=== PATIENT | female | born 1950 | race Caucasian/White ===

== ENCOUNTER 2021-01-04 07:45 | Day surgery (SDC) | payer MEDICARE, SELFPAY ==
[2020-12-29 09:19] VITALS: BMI 23.9
--- NOTE | 2020-12-31 08:12 | MHC.SHP ---
Pre-Procedural Eval Section A Date of Service: 12/31/20 The patient is an INPATIENT: No Changes since office visit: No Cold of Flu in the past 2 weeks, No New Medical Problems, No Changes in Medication and No Patient answered all questions The History & Physical has been completed within 30 days and I have reviewed it.: Yes Section B Chief Complaint: Cataract Left Eye Allergies: Allergies Allergy/AdvReac Type Severity Reaction Status Date / Time alendronate sodium Allergy Intermediate muscle Verified 12/29/20 09:14 [From Fosamax] stiffness Plan Diagnosis/Plan: Unchanged I have reviewed the history and physical and performed a pertinent physical examination on my patient. No changes have occurred unless specified.
--- NOTE | 2021-01-01 09:12 | HO.ANESPROP2 ---
Documented by User: Jihan Dickinson NP 01/01/21 09:13 HPI - Anesthesia Eval Consult details Narrative: 70yo F for Left Cataract Extraction IOL Insertion PCP cleared No prev cataract on record [facility] Past Medical History Medical History COVID-19 vaccine series completed Depression Elevated cholesterol Macular degeneration Surgical History Surgical History H/O colonoscopy History of bunionectomy Hx of section Social History Social History Are you a primary career and technology education teacher to a significant other at home: No Do you presently have visiting nurse or other home services: No Patient Tobacco Use Status: Former Tobacco user Quit Date: age 27 Tobacco use type: Cigarette Years Smoked: age 27 Use of substances other than those prescribed or required for medical reasons: No Have you been hit, kicked, punched, or otherwise hurt by someone within the past year? If so, by whom?: No Are you DNR?: No Advance Directives: No Advance Directives Information Provided: Yes Advance Directives on File: No Recently lost weight without trying: No Eating poorly because of decreased appetite: No Nutrition Risks: No Nutritional Risk Poor oral hygiene: No Meds Allergies Allergy/AdvReac Type Severity Reaction Status Date / Time alendronate sodium Allergy Intermediate muscle Verified 01/04/21 08:44 [From Fosamax] stiffness Home Medications Medication Instructions Recorded Confirmed Last Taken Type acyclovir 400 mg tablet 1 tab PO BID 12/29/20 12/29/20 Unknown History aspirin 81 mg tablet,delayed 81 mg PO DAILY 12/29/20 12/29/20 Unknown History release (Aspirin Low Dose) calcium carbonate-vitamin D3 600 1 cap PO DAILY 12/29/20 12/29/20 Unknown History mg calcium-200 unit capsule (Calcium 600 + D(3)) cyanocobalamin (vitamin B-12) 500 500 mcg PO DAILY 12/29/20 12/29/20 Unknown History mcg tablet (Vitamin B-12) folic acid 800 mcg tablet 0.8 mg PO DAILY 12/29/20 12/29/20 Unknown History pyridoxine (vitamin B6) 100 mg 100 mg PO DAILY 12/29/20 12/29/20 Unknown History tablet (Vitamin B-6) simvastatin 20 mg tablet 1 tab PO QAM 12/29/20 12/29/20 Unknown History venlafaxine 37.5 mg 1 cap PO DAILY 12/29/20 12/29/20 01/04/21 07:00 History capsule,extended release 24 hr vitamins A,C,W-clkl-aowsve 14,320 1 cap PO BID 12/29/20 12/29/20 Unknown History unit-226 mg-200 unit capsule (PreserVision AREDS) Exam Exam Date and Time: January 01, 2021 0912 Height,Weight and Vital Signs: Height 5 ft 5.5 in Weight 66.224 kg Assessment and Plan Assessment Anesthesia Assessment: Chart Reviewed Documented by User: Suzan Gomez MD 01/04/21 09:09 [facility] Past Medical History Medical History COVID-19 vaccine series completed Depression Elevated cholesterol Macular degeneration Surgical History Surgical History H/O colonoscopy History of bunionectomy Hx of section History of Problems with Anesthesia: No Social History Social History Are you a primary career and technology education teacher to a significant other at home: No Do you presently have visiting nurse or other home services: No Patient Tobacco Use Status: Former Tobacco user Quit Date: age 27 Tobacco use type: Cigarette Years Smoked: age 27 Use of substances other than those prescribed or required for medical reasons: No Have you been hit, kicked, punched, or otherwise hurt by someone within the past year? If so, by whom?: No Are you DNR?: No Advance Directives: No Advance Directives Information Provided: Yes Advance Directives on File: No Recently lost weight without trying: No Eating poorly because of decreased appetite: No Nutrition Risks: No Nutritional Risk Poor oral hygiene: No Meds Allergies Allergy/AdvReac Type Severity Reaction Status Date / Time alendronate sodium Allergy Intermediate muscle Verified 01/04/21 08:44 [From Fosamax] stiffness Home Medications Medication Instructions Recorded Confirmed Last Taken Type acyclovir 400 mg tablet 1 tab PO BID 12/29/20 12/29/20 Unknown History aspirin 81 mg tablet,delayed 81 mg PO DAILY 12/29/20 12/29/20 Unknown History release (Aspirin Low Dose) calcium carbonate-vitamin D3 600 1 cap PO DAILY 12/29/20 12/29/20 Unknown History mg calcium-200 unit capsule (Calcium 600 + D(3)) cyanocobalamin (vitamin B-12) 500 500 mcg PO DAILY 12/29/20 12/29/20 Unknown History mcg tablet (Vitamin B-12) folic acid 800 mcg tablet 0.8 mg PO DAILY 12/29/20 12/29/20 Unknown History pyridoxine (vitamin B6) 100 mg 100 mg PO DAILY 12/29/20 12/29/20 Unknown History tablet (Vitamin B-6) simvastatin 20 mg tablet 1 tab PO QAM 12/29/20 12/29/20 Unknown History venlafaxine 37.5 mg 1 cap PO DAILY 12/29/20 12/29/20 01/04/21 07:00 History capsule,extended release 24 hr vitamins A,C,T-jmjl-xaplgh 14,320 1 cap PO BID 12/29/20 12/29/20 Unknown History unit-226 mg-200 unit capsule (PreserVision AREDS) Exam Airway Mallampati Class: II TM Dist: >3cm Neck ROM: Full Loose/Missing/Broken Teeth: No Heart: RRR Lungs: CTA Assessment and Plan Assessment Anesthesia Assessment: Anesthesia Plan Discussed Final Anesthetic Review History of Problems with Anesthesia: No NPO: Yes ASA Class: II Final Preanesthetic Review: Meds/Allgs Chart Reviewed, Consent Obtained/Reviewed and Anes Risks/Benef Reviewed Patient Risk: Low Procedure Risk: Low Anesthetic Plan Anesthetic Plan: MAC: Disposition: Standard PACU
[2021-01-04 08:45] VITALS: BP 120/68; PULSE 67; RESP 16; TEMP 37; O2SAT 95
[2021-01-04] MEDS: Tetracaine HCl/PF 0.5% Oph Sol 4 ML DROPS 1 DROP EYE-LEFT (09:02)
[2021-01-04] MEDS: Lactated Ringers 500 ML 50 ML IV (09:02)
[2021-01-04] MEDS: Tropicamide 1 % Ophth Sol 3 ML BTL 1 DROP EYE-LEFT ×3 (09:04→09:16)
[2021-01-04] MEDS: Phenylephrine HCL 2.5% Oph SoL 2 ML BOTTLE 1 DROP EYE-LEFT ×3 (09:08→09:20)
--- NOTE | 2021-01-04 09:57 | HO.PNOPHT ---
Ophthalmology Procedure Procedure Date of Service: 01/04/21 Ophthalmology Viscoelastic: Healon Duet Dual Pack Pro Ophthalmology Lenses: TECNIS [id number] (12.5) Procedure Notes: PREOPERATIVE DIAGNOSIS: Decreased visual acuity left eye secondary to cataract POSTOPERATIVE DIAGNOSIS: Same PROCEDURE: Left cataract extraction with intraocular lens insertion SURGEON: Isrrael Hooker M.D. ANESTHESIA: Topical/MAC ESTIMATED BLOOD LOSS: None COMPLICATIONS: None After obtaining informed consent, the patient was brought to the operation room suite and placed in the supine position. After adequate sedation per anesthesia, topical drops of Tetracaine were given to the left eye. The eye was then prepped and draped in the usual sterile fashion. The operating room microscope was then positioned over the operative eye and a lid speculum placed. A paracentesis was created. Viscoelastic was then instilled into the anterior chamber. A three plane incision was then created temporally, utilizing a 2.85 mm keratome. Capsulotomy forceps were then utilized to create a circular tear capsulotomy. Hydrodissection and hydrodelineation were carried out until adequate mobilization of the nucleus occurred. Phacoemulsification was then utilized to remove the dense central nucleus followed by removal of the cortical material utilizing the automated aspiration irrigation unit. Viscoat elastic was instilled into the posterior capsular bag followed by placement of a posterior chamber intraocular lens without difficulty. The residual Viscoat elastic was then removed utilizing the automated IA machine. The wound was check and found to be watertight. The patient tolerated the procedure well and the lid speculum was removed. Intracameral injection of Vigamox 0.1 mL followed by a subtenon injection of Kenalog-40 0.2 mL were administered. The patient will be seen in the a.m.
[2021-01-04 10:17] VITALS: BP 130/71; PULSE 66; RESP 16; TEMP 36.2; O2SAT 98
== END 2021-01-04 10:29 | disposition home or self-care (01) ==
PROVIDERS: PCP Nurse Practitioner; Visit Provider Ophthalmology
PROC: (CPT 66985; principal; 2021-01-04 10:30)
DX: H25.12 Age-related nuclear cataract, left eye (principal)
CPT/HCPCS: 66984; J2250; J3010; J3300; V2632

== ENCOUNTER 2021-01-18 09:08 | Day surgery (SDC) | payer MEDICARE, SELFPAY ==
[2020-12-29 09:21] VITALS: BMI 23.9
--- NOTE | 2021-01-13 08:42 | MHC.SHP ---
Pre-Procedural Eval Section A Date of Service: 01/13/21 The patient is an INPATIENT: No Changes since office visit: No Cold of Flu in the past 2 weeks, No New Medical Problems, No Changes in Medication and No Patient answered all questions The History & Physical has been completed within 30 days and I have reviewed it.: Yes Section B Chief Complaint: Cataract Right Eye Allergies: Allergies Allergy/AdvReac Type Severity Reaction Status Date / Time alendronate sodium Allergy Intermediate muscle Verified 01/04/21 08:44 [From Fosamax] stiffness Plan Diagnosis/Plan: Unchanged I have reviewed the history and physical and performed a pertinent physical examination on my patient. No changes have occurred unless specified.
[2021-01-18 10:17] VITALS: BP 133/75; PULSE 64; RESP 18; TEMP 36.3; O2SAT 97
[2021-01-18] MEDS: Tetracaine HCl/PF 0.5% Oph Sol 4 ML DROPS 1 DROP EYE-RIGHT (10:27)
[2021-01-18] MEDS: Lactated Ringers 500 ML 20 ML IVCONT (10:35)
[2021-01-18] MEDS: Tropicamide 1 % Ophth Sol 3 ML BTL 1 DROP EYE-RIGHT ×3 (10:35→10:42)
[2021-01-18] MEDS: Phenylephrine HCL 2.5% Oph SoL 2 ML BOTTLE 1 DROP EYE-RIGHT ×3 (10:38→10:43)
--- NOTE | 2021-01-18 10:53 | HO.ANESPROP2 ---
[facility] Past Medical History Medical History COVID-19 vaccine series completed Depression Elevated cholesterol Macular degeneration Family History Family history of problems with anesthesia: No Surgical History Surgical History H/O colonoscopy History of bunionectomy Hx of section History of Problems with Anesthesia: No Social History Social History Are you a primary resident care manager to a significant other at home: No Do you presently have visiting nurse or other home services: No Patient Tobacco Use Status: Former Tobacco user Quit Date: age 27 Tobacco use type: Cigarette Years Smoked: age 27 Use of substances other than those prescribed or required for medical reasons: No Have you been hit, kicked, punched, or otherwise hurt by someone within the past year? If so, by whom?: No Are you DNR?: No Advance Directives Information Provided: Yes (as above noted) Advance Directives on File: No Recently lost weight without trying: No Eating poorly because of decreased appetite: No Nutrition Risks: No Nutritional Risk Poor oral hygiene: No Meds Allergies Allergy/AdvReac Type Severity Reaction Status Date / Time alendronate sodium Allergy Intermediate muscle Verified 01/04/21 08:44 [From Fosamax] stiffness Active Medications: Current Medications Lactated Ringer's (Lr) 500 mls @ 20 mls/hr IVCONT .Q24H JEANNETTE Last Admin: 01/18/21 10:35 Dose: 20 mls/hr Documented by: Povidone Iodine (Povidone Iodine 5 % [facility] Soln 30 Ml Bottle) 1 appl EYE-RIGHT PREOP PRN PRN Reason: Pre-Op Surgical Implant Prophy Home Medications Medication Instructions Recorded Confirmed Last Taken Type acyclovir 400 mg tablet 1 tab PO BID 12/29/20 12/29/20 Unknown History aspirin 81 mg tablet,delayed 81 mg PO DAILY 12/29/20 12/29/20 01/16/21 History release (Aspirin Low Dose) calcium carbonate-vitamin D3 600 1 cap PO DAILY 12/29/20 12/29/20 Unknown History mg calcium-200 unit capsule (Calcium 600 + D(3)) cyanocobalamin (vitamin B-12) 500 500 mcg PO DAILY 12/29/20 12/29/20 Unknown History mcg tablet (Vitamin B-12) folic acid 800 mcg tablet 0.8 mg PO DAILY 12/29/20 12/29/20 Unknown History pyridoxine (vitamin B6) 100 mg 100 mg PO DAILY 12/29/20 12/29/20 Unknown History tablet (Vitamin B-6) simvastatin 20 mg tablet 1 tab PO QAM 12/29/20 12/29/20 Unknown History venlafaxine 37.5 mg 1 cap PO DAILY 12/29/20 12/29/20 01/18/21 07:30 History capsule,extended release 24 hr vitamins A,C,F-zxob-amhcmr 14,320 1 cap PO BID 12/29/20 12/29/20 Unknown History unit-226 mg-200 unit capsule (PreserVision AREDS) Exam Exam Date and Time: January 18, 2021 1053 Height,Weight and Vital Signs: Height 5 ft 5.5 in Weight 66.224 kg Last Vital Signs Temp 97.3 F 01/18/21 10:17 Pulse 64 01/18/21 10:17 Resp 18 01/18/21 10:17 BP 133/75 01/18/21 10:17 Pulse Ox 97 01/18/21 10:17 Airway Mallampati Class: II TM Dist: >3cm Neck ROM: Limited Assessment and Plan Assessment Anesthesia Assessment: Anesthesia Plan Discussed and Chart Reviewed Final Anesthetic Review Family History of Problems with Anesthesia: No History of Problems with Anesthesia: No NPO: Yes ASA Class: II Final Preanesthetic Review: No Changes in Pt Med Stat, Meds/Allgs Chart Reviewed, Consent Obtained/Reviewed and Anes Risks/Benef Reviewed Patient Risk: Low Procedure Risk: Low Assessment/Block/Sedation in SS: Assess/Block/Sedation-SS Anesthetic Plan Anesthetic Plan: MAC:
--- NOTE | 2021-01-18 11:22 | HO.PNOPHT ---
Ophthalmology Procedure Procedure Date of Service: 01/18/21 Ophthalmology Viscoelastic: Abhinav Patelt Dual Pack Pro Ophthalmology Lenses: TECBEAN [id number] (13) Procedure Notes: PREOPERATIVE DIAGNOSIS: Decreased visual acuity right eye secondary to cataract POSTOPERATIVE DIAGNOSIS: Same PROCEDURE: Right cataract extraction with intraocular lens insertion SURGEON: Isrrael Hooker M.D. ANESTHESIA: Topical/MAC ESTIMATED BLOOD LOSS: None COMPLICATIONS: None After obtaining informed consent, the patient was brought to the operating room suite and placed in the supine position. After adequate sedation per anesthesia, topical drops of Tetracaine were given to the right eye. The eye was then prepped and draped in the usual sterile fashion. The operating room microscope was then positioned over the operative eye and a lid speculum placed. A paracentesis was created. Viscoelastic was then instilled into the anterior chamber. A three plane incision was then created temporally, utilizing a 2.85 mm keratome. Capsulotomy forceps were then utilized to create a circular tear capsulotomy. Hydrodissection and hydrodelineation were carried out until adequate mobilization of the nucleus occurred. Phacoemulsification was then utilized to remove the dense central nucleus followed by removal of the cortical material utilizing the automated aspiration irrigation unit. Viscoelastic was instilled into the posterior capsular bag followed by placement of a posterior chamber intraocular lens without difficulty. The residual Viscoelastic was then removed utilizing the automated IA machine. The wound was checked and found to be watertight. The patient tolerated the procedure well and the lid speculum was removed. Intracameral injection of Vigamox 0.1 mL followed by a subtenon injection of Kenalog-40 0.2 mL were administered. The patient will be seen in the a.m.
[2021-01-18 11:45] VITALS: BP 140/68; PULSE 70; RESP 16; TEMP 36.3; O2SAT 97
== END 2021-01-18 11:58 | disposition home or self-care (01) ==
PROVIDERS: PCP Nurse Practitioner; Visit Provider Ophthalmology
PROC: (CPT 66985; principal; 2021-01-18 11:50)
DX: H25.11 Age-related nuclear cataract, right eye (principal); H54.7 Unspecified visual loss; H35.3112 Nonexudative age-related macular degeneration, right eye, intermediate dry stage; H52.13 Myopia, bilateral; M81.0 Age-related osteoporosis without current pathological fracture; F33.9 Major depressive disorder, recurrent, unspecified; Z79.899 Other long term (current) drug therapy; Z88.8 Allergy status to other drugs, medicaments and biological substances; Z87.891 Personal history of nicotine dependence
CPT/HCPCS: 66984; J3010; J3300; V2632